=== PATIENT | male | born 1995 | race Caucasian/White ===

== ENCOUNTER 2021-09-10 12:25 | Outpatient (REF) | payer OTHER, SELFPAY ==
--- NOTE | ~2021-09-10 | XR_ITS ---
EXAMINATION: XR FOOT, RIGHT CLINICAL INFORMATION: Right foot pain. COMPARISON: None TECHNIQUE: AP, lateral, and oblique views of the right foot. FINDINGS: The bones and soft tissues are normal. No fracture. Alignment is anatomic. Joint spaces are maintained. XR/XR foot RT min 3V IMPRESSION: Normal right foot.
== END 2021-09-10 12:26 | disposition home or self-care (01) ==
LOC: HO.XRAY 12:25
PROVIDERS: PCP Internal Medicine; Visit Provider Physician Assistant
DX: M79.671 Pain in right foot (principal)
CPT/HCPCS: 73630

== ENCOUNTER 2021-11-05 17:53 | Outpatient (REF) | payer OTHER, SELFPAY ==
--- NOTE | ~2021-11-05 | MR_ITS ---
EXAMINATION: MRI FOOT WITHOUT CONTRAST, RIGHT CLINICAL INFORMATION: Bilateral pain and swelling with weightbearing. Sprain one year ago. COMPARISON: Right foot radiographs dated 09/10/2021 and right ankle radiographs dated 04/28/2019. TECHNIQUE: Multisequence MR imaging of the right foot was obtained without contrast on a high-field strength scanner. FINDINGS: BONE: Intact. MUSCLES/TENDONS: No abnormal marrow signal. No stress reaction, fracture, or avascular necrosis. Specifically, no fifth metatarsal abnormality in the region of the overlying skin marker. Intact articular cartilage. LIGAMENTS: The Lisfranc ligament is intact. The plantar plates are intact. SOFT TISSUES: No abnormal soft tissue mass or fluid collection. No subcutaneous edema. No significant abnormality in the region of the overlying skin marker. MR/MR foot RT wo con IMPRESSION: Unremarkable examination. Specifically, no significant abnormality within the lateral foot in the region of the overlying skin marker.
== END 2021-11-05 17:54 | disposition home or self-care (01) ==
LOC: HO.MRI 17:53
PROVIDERS: Visit Provider Physician Assistant
DX: M79.671 Pain in right foot (principal)
CPT/HCPCS: 73718

== ENCOUNTER 2022-04-01 07:45 | Outpatient (REF) | payer OTHER, SELFPAY ==
--- NOTE | ~2022-04-01 | XR_ITS ---
EXAMINATION: XR HAND, RIGHT CLINICAL INFORMATION: Pain COMPARISON: None TECHNIQUE: PA, lateral, and oblique views of the right hand. FINDINGS: The bones and soft tissues are normal. No fracture. Alignment is anatomic. Joint spaces are maintained. No erosions or soft tissue calcifications. XR/XR hand RT min 3V IMPRESSION: Normal right hand.
== END 2022-04-01 07:46 | disposition home or self-care (01) ==
LOC: HO.HOSX 07:45
PROVIDERS: Visit Provider Physician Assistant
DX: M79.641 Pain in right hand (principal)
CPT/HCPCS: 73130

== ENCOUNTER 2024-03-17 20:41 | Emergency (ER) | payer OTHER, SELFPAY ==
--- NOTE | ~2024-03-17 | XR_ITS ---
EXAMINATION: XR KNEE, RIGHT CLINICAL INFORMATION: Swelling COMPARISON: None available. TECHNIQUE: AP, lateral, and both oblique views of the right knee. FINDINGS: No fracture or joint effusion. Alignment is anatomic. Joint spaces are maintained. No abnormal soft tissue calcification. Prepatellar soft tissues are swollen. No subcutaneous gas. XR/XR knee RT 4V IMPRESSION: Prepatellar soft tissue swelling. No acute osseous findings.
[2024-03-17 20:52] VITALS: BP 141/80; PULSE 78; RESP 16; TEMP 36.7; O2SAT 100; BMI 25.5
--- NOTE | 2024-03-17 21:02 | ED.LOWEXIN ---
HPI - Extremity Injury (Lower) General Chief Complaint: Extremity Injury, Lower Stated Complaint: knee swelling and tingling, no inj Related Data Allergies Allergy/AdvReac Type Severity Reaction Status Date / Time No Known Allergies Allergy Verified 03/17/24 20:59 [facility] Social History Social History (Updated 04/01/22 @ 08:49 by Dalia Chu CMA) Advance Directives: No Advance Directives Information Provided: No Do you have a plan to hurt others: No Plan Current occupational status: employed Physical Exam Vital Signs: Vital Signs: Last Vital Signs Temp 98.1 F 03/17/24 20:52 Pulse 78 03/17/24 20:52 Resp 16 03/17/24 20:52 BP 141/80 H 03/17/24 20:52 Pulse Ox 100 03/17/24 20:52 O2 Del Method Room Air 03/17/24 20:52 BMI result Body Mass Index 25.5 Course Course Course Narrative: This is an RME: Additional HPI, ROS, PE not included below will be deferred to primary provider. RME assessment and note performed by: Nadia Pace PA-C This is a 28-year-old male who presents emergency department with complaints of right knee swelling. He states that he was crawling around the ground with his son earlier and felt increased swelling to his right knee with some tingling. He put ice to the area which provided some relief with the swelling. Plan: Knee x-ray Reevaluation(s) Reevaluation #1: Patient left without completing treatment. Discharge Plan Discharge Clinical Impression: Acute knee pain Patient Disposition: Left W/O Completing Treatment Discharge Date/Time: 03/18/24 00:40
== END 2024-03-18 00:40 | disposition left against medical advice (07) ==
PROVIDERS: Emergency Provider Emergency Medicine; PCP Internal Medicine
DX: M25.561 Pain in right knee (principal); M79.89 Other specified soft tissue disorders; R20.2 Paresthesia of skin
CPT/HCPCS: 73564; 99281; 99283

== ENCOUNTER 2024-07-28 16:33 | Emergency (ER) | payer OTHER, SELFPAY ==
--- NOTE | 2024-07-28 | ECG_ITS ---
Test Reason : cp Blood Pressure : / mmHG Vent. Rate : 107 BPM Atrial Rate : 108 BPM P-R Int : 110 ms QRS Dur : 098 ms QT Int : 368 ms P-R-T Axes : 056 038 064 degrees QTc Int : 491 ms Undetermined rhythm RSR' or QR pattern in V1 suggests right ventricular conduction delay Nonspecific ST abnormality Abnormal ECG No previous ECGs available Referred By: Generic ED Physician Electronically Signed By:DARRYL LOPES
--- NOTE | ~2024-07-28 | XR_ITS ---
EXAMINATION: XR CHEST CLINICAL INFORMATION: chest pain COMPARISON: None available. TECHNIQUE: 2 views of the chest were obtained. FINDINGS: No focal consolidation, pulmonary edema, or pleural effusion. Normal cardiomediastinal silhouette. XR/XR chest 2V IMPRESSION: No acute cardiopulmonary findings. Electronically signed by: Mekhi Fournier MD 07/28/2024 07:43 PM [facility]
--- NOTE | 2024-07-28 16:45 | ECG_ITS ---
Test Reason : cp Blood Pressure : / mmHG Vent. Rate : 102 BPM Atrial Rate : 102 BPM P-R Int : 122 ms QRS Dur : 090 ms QT Int : 354 ms P-R-T Axes : 046 040 061 degrees QTc Int : 461 ms Sinus tachycardia RSR' or QR pattern in V1 suggests right ventricular conduction delay Borderline ECG When compared with ECG of 28-JUL-2024 16:43, No significant changes seen Referred By: Deepti Erazo Electronically Signed By:DARRYL LOPES
[2024-07-28 16:52] VITALS: BP 128/57; PULSE 114; O2SAT 98
--- NOTE | 2024-07-28 17:05 | ED.GENADULT ---
HPI - General Adult General Chief complaint: Chest Pain Stated complaint: chest pain Related Data Allergies Allergy/AdvReac Type Severity Reaction Status Date / Time No Known Allergies Allergy Verified 07/28/24 17:07 [facility] Social History Social History (Updated 04/01/22 @ 08:49 by Dalia Chu [facility]) Advance Directives: No Advance Directives Information Provided: No Current occupational status: employed Physical Exam ED Vital Signs: Vital Signs - 24 hr 07/28/24 17:06 Temperature 96.8 F Pulse Rate 96 Respiratory Rate 20 Blood Pressure 108/81 Pulse Oximetry 100 Oxygen Delivery Method Room Air BMI result Body Mass Index 25.4 Course Course Course Narrative: This is a rapid medical exam performed by Frieda Bellamy NP: Additional HPI, ROS, PE not included below will be deferred to primary provider. Patient is a 28-year-old legally blind male presenting to the ED with complaint of chest pain, nausea and vomiting. States chest pain has improved after vomiting. Plan: EKG, labs, CXR, viral serology Medical Decision Making Lab Data 07/28/24 17:15 07/28/24 17:15 Labs: Lab Results 07/28/24 Range/Units 17:15 WBC 10.9 H (4.8-10.8) X10*3/uL RBC 4.97 (4.60-5.80) X10*6/uL Hgb 16.8 (14.0-18.0) g/dl Hct 46.3 (42.0-52.0) % MCV 93.2 (80.0-98.0) fL MCH 33.8 H (27.0-33.0) pg MCHC 36.3 H (31.0-36.0) g/dl RDW 11.7 (11.0-16.0) % Plt Count 147 L (160-400) X10*3/uL MPV 8.3 L (9.4-12.4) fL Immature Gran % (Auto) 0.4 (0.0-0.4) % Neut % (Auto) 89.2 H (45-73) % Lymph % (Auto) 5.2 L (20-40) % [place] % (Auto) 4.6 (2-11) % Eos % (Auto) 0.3 (0-4) % Baso % (Auto) 0.3 (0-2) % Lymph # (Auto) 0.6 L (1.2-4.9) X10*3/uL [place] # (Auto) 0.5 (0.1-1.2) X10*3/uL Eos # (Auto) 0.0 (0.0-0.4) X10*3/uL Baso # (Auto) 0.0 (0.0-0.2) X10*3/uL Abs Immat Gran (auto) 0.04 H (0.00-0.03) X10*3/uL Absolute Neuts (auto) 9.7 H (2.0-8.3) x10*3/uL Absolute Nucleated RBC 0.000 (0.0-0.012) X10*3/uL Nucleated RBC % (auto) 0.0 (0.0-0.2) /100WBC PT 13.5 H (10.9-12.4) SEC INR 1.2 H (0.9-1.1) Sodium 140 (135-145) mmol/L Potassium 3.6 (3.3-5.1) mmol/L Chloride 106 (96-108) mmol/L Carbon Dioxide 21 L (22-29) mmol/L Anion Gap 17 (12-20) BUN 24 H (9-16) mg/dL Creatinine 1.30 (0.5-1.4) mg/dL Estim Creat Clear Calc 78.3 Estimated GFR > 60 Random Glucose 122 H (60-115) mg/dL Calcium 9.5 (8.4-10.2) mg/dL Total Bilirubin 1.0 (0.0-1.0) mg/dL AST 24 (5-37) U/L ALT 12 (0-40) U/L Alkaline Phosphatase 48 (39-117) U/L Troponin I High Sens < 2.7 (<3.5-35.0) ng/L Total Protein 7.8 (6.5-8.0) g/dL Albumin 4.7 (3.5-5.0) g/dL Lipase 18 (8-78) U/L Influenza Type A (PCR) NEGATIVE (Negative) Influenza Type B (PCR) NEGATIVE (Negative) RSV RNA Qual (PCR) NEGATIVE (Negative) SARS-CoV-2 RNA (RT-PCR) NEGATIVE (Negative) Discharge Plan Discharge Clinical Impression: Chest pain Patient Disposition: Left W/O Completing Treatment Discharge Date/Time: 07/28/24 20:29
[2024-07-28 17:06] VITALS: BP 108/81; PULSE 96; RESP 20; TEMP 36; O2SAT 100; BMI 25.4
--- NOTE | 2024-07-28 17:15 | PC.NURSE ---
IV removed in triage
[2024-07-28 17:23] LABS: MANUAL DIFF FLAG NO
[2024-07-28 17:24] LABS: Basophils Percent Auto 0.3 % (0-2); Eosinophils Percent Auto 0.3 % (0-4); Hematocrit 46.3 % (42.0-52.0); Hemoglobin 16.8 g/dl (14.0-18.0); Imm Gran Abs Auto 0.04 X10*3/uL (0.00-0.03); Imm Gran Pct Auto 0.4 % (0.0-0.4); Lymphocytes Absolute Auto 0.6 X10*3/uL (1.2-4.9); Lymphocytes Percent Auto 5.2 % (20-40); Mean Corpuscular HGB Conc 36.3 g/dl (31.0-36.0); Mean Corpuscular Hemoglobin 33.8 pg (27.0-33.0); Mean Corpuscular Volume 93.2 fL (80.0-98.0); Mean Platelet Volume 8.3 fL (9.4-12.4); Monocytes Absolute Auto 0.5 X10*3/uL (0.1-1.2); Monocytes Percent Auto 4.6 % (2-11); Neutrophils Absolute Auto 9.7 x10*3/uL (2.0-8.3); Neutrophils Percent Auto 89.2 % (45-73); Platelet Count 147 X10*3/uL (160-400); Red Blood Count 4.97 X10*6/uL (4.60-5.80); Red Cell Distribution Width 11.7 % (11.0-16.0); White Blood Count 10.9 X10*3/uL (4.8-10.8)
[2024-07-28 17:30] LABS: INTERNATIONAL NORM RATIO 1.2 (0.9-1.1); Prothrombin Time 13.5 SEC (10.9-12.4)
[2024-07-28 17:39] LABS: Alanine Aminotransferase 12 U/L (0-40); Albumin Level 4.7 g/dL (3.5-5.0); Alkaline Phosphatase 48 U/L (39-117); Anion Gap 17 (12-20); Aspartate Amino Transferase 24 U/L (5-37); Blood Urea Nitrogen 24 mg/dL (9-16); Calcium 9.5 mg/dL (8.4-10.2); Carbon Dioxide 21 mmol/L (22-29); Chloride 106 mmol/L (96-108); Creatinine Clr Calc Pharmacy 78.3; Estimated Glomerular Filt Rate > 60; Glucose Random 122 mg/dL (60-115); Lipase 18 U/L (8-78); Potassium 3.6 mmol/L (3.3-5.1); Sodium 140 mmol/L (135-145); Total Protein 7.8 g/dL (6.5-8.0)
[2024-07-28 17:53] LABS: Troponin-I High Sensitivity < 2.7 ng/L (<3.5-35.0)
[2024-07-28 18:00] LABS: Influenza A PCR NEGATIVE (Negative); Influenza B PCR NEGATIVE (Negative); Resp Syncy Virus RNA Qual PCR NEGATIVE (Negative); SARS COV2 PCR INHOUSE NEGATIVE (Negative)
== END 2024-07-28 20:29 | disposition left against medical advice (07) ==
PROVIDERS: Registered Nurse Emergency; Emergency Provider Emergency Medicine; PCP Physician Assistant
DX: R07.9 Chest pain, unspecified (principal); R11.10 Vomiting, unspecified; Z03.818 Encounter for observation for suspected exposure to other biological agents ruled out
CPT/HCPCS: 0241U; 71046; 80053; 83690; 84484; 85025; 85610; 93005; 99283

== ENCOUNTER → 2024-07-28 16:43 | Outpatient (BNV) | payer OTHER, SELFPAY | PROVIDERS: Emergency Provider Emergency Medicine; PCP Physician Assistant; Visit Provider Internal Medicine | DX: R07.9 Chest pain, unspecified (principal) | CPT/HCPCS: 93010 ==